=== PATIENT | male | born 1980 | race Caucasian/White ===

== ENCOUNTER 2019-03-11 18:30 | Outpatient (CLI) | payer OTHER | END 2019-03-11 18:31 | disposition home or self-care (01) | LOC: SLEEPLAB 18:30 | PROVIDERS: ATTEND Family Medicine | DX: G47.33 Obstructive sleep apnea (adult) (pediatric) (principal); R53.83 Other fatigue; R06.83 Snoring; F41.9 Anxiety disorder, unspecified; I10 Essential (primary) hypertension; E11.9 Type 2 diabetes mellitus without complications | CPT/HCPCS: 95806 ==

== ENCOUNTER 2020-06-10 15:28 | Outpatient (CLI) | payer OTHER | END 2020-06-10 15:29 | disposition home or self-care (01) | LOC: SCSRAD 15:28 | PROVIDERS: ATTEND Nurse Practitioner Family | DX: R07.81 Pleurodynia (principal); K44.9 Diaphragmatic hernia without obstruction or gangrene ==

== ENCOUNTER 2022-06-03 10:18 | Outpatient (CLI) | payer BC | END 2022-06-03 10:19 | disposition home or self-care (01) | LOC: SCSRAD 10:18 | PROVIDERS: ATTEND Nurse Practitioner Family | DX: R05.1 Acute cough (principal) | CPT/HCPCS: 71046 ==